=== PATIENT | male | born 2000 | race African-American/Black ===

== ENCOUNTER 2021-12-26 17:53 | Emergency (ER) | payer OTHER ==
[~2021-12-26] VITALS: Ht 193 cm; Wt 89.6 kg
[2021-12-26 18:01] VITALS: BP 143/72
[2021-12-26 18:28] LABS: BACTERIA,URINE FEW /HPF (0-FEW)
[2021-12-26] MEDS ORDERED: cefTRIAXone IM 500 MG VIAL. IM ONE (19:00)
[2021-12-26] MEDS ORDERED: DOXY100C3 PO (19:01)
--- NOTE | 2021-12-26 19:01 | PHYS DOC ---
Past Medical History Past Medical History: No Pertinent History Past Surgical History: Other Additional Past Surgical Histo: BROKEN NOSE REPAIR Smoking Status: Never Smoker Alcohol Use: None Drug Use: None General Adult EDM: Chief Complaint: PAIN ON URINATION HPI: HPI: Patient is a 21-year-old male presents to the emergency department complaining of burning with urination since this morning. Patient reports he had condom barrier sex. Denies penile discharge. Patient denies testicular pain or testicular swelling, denies abdominal pain, nausea, vomiting, or diarrhea. Patient denies fever or chills. Patient denies rashes or lesions to his genitals. Patient is worried he may have contacted that sexually transmitted disease. Patient denies other physical complaints or physical concerns. Review of Systems: Review of Systems: 14 body systems of review of systems have been reviewed. See HPI for pertinent positives and negative responses, otherwise all other systems are negative, nonpertinent or noncontributory. Constitutional: Negative except as outlined in HPI above. Skin: Negative except as outlined in HPI above. Eyes: Negative except as outlined in HPI above. HENT: Negative except as outlined in HPI above. Respiratory: Negative except as outlined in HPI above. Cardiovascular: Negative except as outlined in HPI above. GI: Negative except as outlined in HPI above. : Negative except as outlined in HPI above. Musculoskeletal: Negative except as outlined in HPI above. Integument: Negative except as outlined in HPI above. Neurologic: Negative except as outlined in HPI above. Endocrine: Negative except as outlined in HPI above. Lymphatic: Negative except as outlined in HPI above. Psychiatric: Negative except as outlined in HPI above. Heart Score: C/O Chest Pain: No Risk Factors: Risk Factors: DM, Current or recent (<one month) smoker, HTN, HLP, family history of CAD, obesity. Risk Scores: Score 0 - 3: 2.5% MACE over next 6 weeks - Discharge Home Score 4 - 6: 20.3% MACE over next 6 weeks - Admit for Clinical Observation Score 7 - 10: 72.7% MACE over next 6 weeks - Early Invasive Strategies Allergies: Allergies: Allergies Coded Allergies Type Severity Reaction Last Updated Verified No Known Drug Allergies 12/01/14 No Physical Exam: PE: Constitutional: Well developed, well nourished, no acute distress, non-toxic appearance. 21-year-old male in no apparent distress. HENT: Normocephalic, atraumatic. Eyes: Conjunctiva normal, no discharge. Neck: Normal range of motion, no stridor. Cardiovascular: No cyanosis appreciated, distal cap refill less than 2 seconds. Lungs & Thorax: Patient is in no respiratory distress, no audible adventitious lung sounds appreciated. Abdomen: Nontender, no abnormalities noted. Skin: Warm, dry, no erythema, no rash. Back: No tenderness, no deformities. Extremities: No tenderness, no cyanosis, no clubbing, ROM intact, no edema. Neurologic: Alert and oriented X 3, normal motor function, normal sensory function, no focal deficits noted. Psychologic: Affect normal, judgement normal, mood normal. Current Patient Data: Labs: Laboratory Tests Test 12/26/21 18:00 Urine Collection Type Unknown Urine Color (Auto) Light yellow Urine Turbidity Clear Urine pH (Auto) 6.0 (<5.0-8.0) Urine Specific [place] 1.024 (1.000-1.030) Urine Protein (Auto) Negative mg/dL (Negative) Urine Glucose (Auto)(UA) Negative mg/dL (Negative) Urine Ketones (Auto) 40 mg/dL (Negative) Urine Blood (Auto) Negative (Negative) Urine Nitrite Negative (Negative) Urine Bilirubin (Auto) Negative (Negative) Urine Urobilinogen (Auto) Normal mg/dL (Normal) Urine Leukocyte Esterase (Auto) Negative (Negative) Urine RBC 1-2 /HPF (0-2) Urine WBC 1-4 /HPF (0-4) Urine Squamous Epithelial Cells Occ /LPF Urine Bacteria Few /HPF (0-FEW) Urine Mucus Slight /LPF Vital Signs: Vital Signs Date Time Temp Pulse Resp B/P (MAP) Pulse Ox O2 Delivery O2 Flow Rate FiO2 12/26/21 18:01 98.6 114 18 143/72 (95) 99 Room Air 98.6 EKG: EKG: [] Radiology/Procedures: Radiology/Procedures: [] Course & Med Decision Making: Course & Med Decision Making Pertinent Labs and Imaging studies reviewed. (See chart for details) 21-year-old male, vital signs reviewed, presents emergency department concerning burning with urination. Patient's physical examination is unremarkable. Will send urinalysis assay, urine GC/chlamydia. The patient's urinalysis did show some bacteria, there was no trichomonas noted, related to patient's dysuria will prophylactically treat for gonorrhea and chlamydia. Discussed findings with patient, discussed continue to use condom barrier sex, discussed medications and side effects, return to ER precautions and concerns were reviewed, patient gave verbal understanding of and is amenable to ED discharge planning. Discussed with the patient all findings and diagnostic testing as well as the need to follow-up with their primary care provider for further evaluation and treatment or return to the ED if any new or worsening symptoms. Strict return precautions were also discussed at length, the patient voiced understanding and agreement with the discharge planning. The patient was nontoxic in appearance, in no apparent distress, and hemodynamically stable at the time of disposition. Biocroí Disclaimer: Biocroí Disclaimer: This electronic medical record was generated, in whole or in part, using a voice recognition dictation system. Departure Departure Impression: Primary Impression: Dysuria Disposition: HOME / SELF CARE / HOMELESS Condition: GOOD Referrals: UNKNOWN PCP NAME (PCP) Patient Instructions: Dysuria Additional Instructions: You were seen today in the emergency department for burning on urination. Your urinalysis assay did show some bacteria in your urine however there was no trichomonas. Your urine lab is pending for gonorrhea and chlamydia at this time. Because it may take 2 or more days for the cultures to result, you and I have made a joint decision to prophylactically treat you for sexually tr ansmitted diseases. You were given a antibiotic injection of Rocephin in the emergency department today, I have sent a prescription for doxycycline which she will take 1 tablet twice a day for the next 7 days. Please take this medication until complete. Please follow-up with your primary care physician for ongoing dysuria or burning with urination. You may increase your fluid i ntake to help wash or flush any bacteria out of your bladder. Thank you for visiting our Emergency Department. It was a pleasure taking care of you today in the emergency department and we appreciate you trusting us with your care. If any additional problems come up don't hesitate to return to visit us. Please follow up with your primary care provider so they can plan additional care if needed and know about the problem that you had. If symptoms worsen come back to the Emergency Department. Any concerning symptoms that start such as chest pain, shortness of air, weakness or numbness on one side of the body, running high fevers or any other concerning symptoms return to the ER. Scripts Doxycycline Hyclate (DOXYCYCLINE HYCLATE) 100 Mg Capsule 1 CAP PO BID for dysuria, #14 CAP 0 Refills Prov: SILVA LINCOLN APRN 12/26/21 SILVA LINCOLN APRN Dec 26, 2021 19:01
== END 2021-12-26 19:10 | disposition home or self-care (01) ==
LOC: ER 17:53
DX: R30.0 Dysuria (principal)
CPT/HCPCS: 81001; 87491; 87591; 96372; 99283; J0696